=== PATIENT | female | born 1950 | race African-American/Black ===

== ENCOUNTER 2023-07-17 14:11 | Emergency (ER) | payer MEDICARE, OTHER ==
[~2023-07-17] VITALS: Ht 170.2 cm; Wt 127.0 kg
[2023-07-17 14:16] VITALS: BP 173/86; PULSE 80; RESP 16; O2SAT 96
[2023-07-17] MEDS ORDERED: ACETAMINOPHEN 325MG TABLET PO ONE (15:45)
[2023-07-17] MEDS ORDERED: LIDO700A15 TP (16:26)
[2023-07-17] MEDS ORDERED: TOPUD MT (16:26)
[2023-07-17 16:42] VITALS: TEMP 98.2
== END 2023-07-17 16:45 | disposition home or self-care (01) ==
LOC: ER 14:11
DX: M16.12 Unilateral primary osteoarthritis, left hip (principal); E11.9 Type 2 diabetes mellitus without complications; I10 Essential (primary) hypertension
CPT/HCPCS: 73502; 99283

== ENCOUNTER 2024-01-12 08:23 | Emergency (ER) | payer MEDICARE, OTHER ==
[~2024-01-12] VITALS: Ht 167.6 cm; Wt 114.0 kg
[~2024-01-12 08:23] MED LIST: LIDO700A15 TP; TOPUD MT
[2024-01-12 08:25] VITALS: O2SAT 100
[2024-01-12] MEDS ORDERED: SULF1TAB48 MT (12:21)
[2024-01-12 12:50] VITALS: BP 117/50; PULSE 79; RESP 16; TEMP 97.8
== END 2024-01-12 13:15 | disposition home or self-care (01) ==
LOC: ER 08:23
DX: L02.416 Cutaneous abscess of left lower limb (principal); E11.9 Type 2 diabetes mellitus without complications; I10 Essential (primary) hypertension
CPT/HCPCS: 10060; 99283; Z7610 ×4

== ENCOUNTER 2024-01-17 09:16 | Emergency (ER) | payer MEDICARE, OTHER ==
[~2024-01-17] VITALS: Ht 170.2 cm; Wt 140.0 kg
[~2024-01-17 09:16] MED LIST changes: +SULF1TAB48 MT
[2024-01-17 09:18] VITALS: O2SAT 98
[2024-01-17] MEDS ORDERED: CEPH500C2 MT (10:21)
[2024-01-17] MEDS: BACITRACIN ZINC OINT UDPKT TOP ONE (10:23)
[2024-01-17 10:25] VITALS: BP 144/91; PULSE 97; RESP 16; TEMP 97.7
== END 2024-01-17 10:26 | disposition home or self-care (01) ==
LOC: ER 09:21
DX: L02.416 Cutaneous abscess of left lower limb (principal); E11.9 Type 2 diabetes mellitus without complications; I10 Essential (primary) hypertension
CPT/HCPCS: 10061; 99284